=== PATIENT | male | born 1930 | race Caucasian/White ===

== ENCOUNTER 2019-05-19 09:42 | Emergency (ER) | payer OTHER ==
[~2019-05-19] VITALS: Ht 167.6 cm; Wt 68.0 kg
[~2019-05-19 09:42] MED LIST: BENADRYL50 MG PO; MEDROL4 MG PO
[2019-05-19] MEDS ORDERED: METFORMIN HCL500 M2 PO (09:59)
[2019-05-19] MEDS ORDERED: DOXYCYCLINE HY100 MG PO (13:49)
== END 2019-05-19 14:37 | disposition home or self-care (01) ==
LOC: ER 09:42
DX: N39.0 Urinary tract infection, site not specified (principal); B96.29 Other Escherichia coli [E. coli] as the cause of diseases classified elsewhere

== ENCOUNTER 2019-07-16 00:10 | Emergency (ER) | payer OTHER ==
[~2019-07-16] VITALS: Ht 165.1 cm; Wt 68.0 kg
[~2019-07-16 00:10] MED LIST changes: +DOXYCYCLINE HY100 MG PO; +METFORMIN HCL500 M2 PO
[2019-07-16] MEDS ORDERED: MOBIC15 MG PO (02:58)
[2019-07-16] MEDS ORDERED: DUI500 PO (02:58)
== END 2019-07-16 03:18 ==
LOC: ER 00:10
DX: S61.421A Laceration with foreign body of right hand, initial encounter (principal); S20.211A Contusion of right front wall of thorax, initial encounter; S20.212A Contusion of left front wall of thorax, initial encounter; W26.8XXA Contact with other sharp object(s), not elsewhere classified, initial encounter; W18.09XA Striking against other object with subsequent fall, initial encounter; Y93.89 Activity, other specified; Y92.89 Other specified places as the place of occurrence of the external cause; Y99.8 Other external cause status